=== PATIENT | female | born 1980 | race Hispanic/Latino ===

== ENCOUNTER 2023-01-20 15:48 | Emergency (ER) | payer OTHER, SELFPAY ==
--- NOTE | 2023-01-20 16:01 | PC.NURSE ---
in br to obtain ua spec.
[2023-01-20 16:06] VITALS: BP 145/79; PULSE 90; RESP 16; TEMP 37.4; O2SAT 99
--- NOTE | 2023-01-20 16:11 | ED.FEMALEGU ---
HPI - Female Genitourinary General Chief complaint: Urogenital-Female Stated complaint: UTI Source: patient Mode of arrival: ambulatory Limitations: no limitations History of Present Illness HPI Narrative: Patient is a 42-year-old female that presents with 3 days of urgency, frequency, burning with urination, low back pain, low abdominal pain. Denies any abdominal pain at this time, but reports low back pain is a 7/10. Did try [id number] antifungal vaginal cream with no relief of symptoms. Denies any fever, chills, nausea, vomiting, diarrhea. MD elicited complaint: dysuria Related Data Home Medications Medication Instructions Recorded Confirmed lisinopril 20 mg tablet mg 01/20/23 nifedipine 60 mg tablet,extended mg PO 01/20/23 release 24 hr Allergies Allergy/AdvReac Type Severity Reaction Status Date / Time Penicillins Allergy Severe Rash Verified 01/20/23 16:01 Review of Systems Review of Systems: All systems reviewed & are unremarkable except as noted in HPI and below Constitutional: Constitutional: Denies chills, Denies fever(s), Denies headache(s), Denies malaise and Denies weakness Eyes: Eyes: Denies change in vision, Denies eye discharge and Denies irritation ENT: Denies otalgia, Denies headache(s), Denies nasal congestion, Denies nasal discharge, Denies sinus pain and Denies sore throat Cardiovascular: Cardiovascular: Denies chest pain, Denies edema, Denies palpitations and Denies dyspnea Respiratory: Respiratory: Denies cough and Denies dyspnea Gastrointestinal: Gastrointestinal: Denies abdominal pain, Denies diarrhea, Denies nausea and Denies vomiting Genitourinary: Genitourinary: Denies hematuria, Reports dysuria, Denies flank pain, Reports urinary incontinence and Reports urinary urgency Musculoskeletal: Musculoskeletal: Reports back pain and Denies numbness Integumentary/Breasts: Skin/Breast: Denies pruritus and Denies rash Neurologic: Denies headache(s), Denies numbness and Denies weakness Psychiatric: Psychiatric: Reports no additional psychiatric complaints Endocrine: Endocrine: Denies palpitations PMFSH Comments At time of signature, agree with nursing past medical, surgical, social and family history. There is no relevant family history pertinent to the presenting complaint. Exam Const: General: cooperative, healthy appearing, comfortable, no acute distress and well nourished Nutritional Appearance: well nourished Orientation/consciousness: patient oriented x3 HENMT: Head: normocephalic and atraumatic Ears: external ears normal Face/Nose/Sinus: Normal external nose present, Normal nares present and normal facial exam Face and sinus: normal facial exam Eyes: General: appearance normal, both eyes and all related structures Pupils: Equal, round and reactive pupils present EOM: EOMs intact bilaterally Neck: Neck: normal visual inspection, full ROM and supple Chest: Chest palpation & inspection: normal inspection of the chest Resp: Effort & Inspection: normal respiratory effort and able to speak in complete sentences Cardio: Rate: regular rate Rhythm: regular rhythm GI: Inspection: normal to inspection GI Palp: No abdominal tenderness and Yes Soft to palpation : General: Yes no CVA tenderness OB/external & speculum: Deferred OB/external & speculum exam Manual OB Exam: Deferred manual OB exam Back/Spine/Pelvis: Back: no CVA tenderness Skin: General skin exam: normal color and no rashes or lesions noted Neuro: General: patient oriented x3 and moves all extremities Cranial nerves: Yes Equal, round and reactive pupils present Extrem: General: normal to inspection and full ROM Psych: Appearance: grossly normal and well kempt Course Course Emergency Course: Patient is aware of diagnosis, understands and agrees to treatment plan. Anticipatory guidance given. Patient agrees to follow-up as directed and is aware of reasons to seek care at the emergency departme
== END 2023-01-20 16:40 | disposition home or self-care (01) ==
PROVIDERS: Emergency Provider Nurse Practitioner Family; PCP Registered Nurse
DX: N39.0 Urinary tract infection, site not specified (principal); E78.00 Pure hypercholesterolemia, unspecified; I10 Essential (primary) hypertension
CPT/HCPCS: 81003; 87086; 87088; 87147; 99213; G0463

== ENCOUNTER 2023-08-22 21:17 | Emergency (ER) | payer OTHER, SELFPAY ==
--- NOTE | ~2023-08-22 | XR_ITS ---
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 RESULT: Lines, tubes, and devices: None. Lungs and pleura: Clear. Cardiomediastinal silhouette: Stable. Other: No acute osseous or upper abdominal finding. IMPRESSION: No acute cardiopulmonary process. Reviewed, dictated and finalized at location K. [facility] ENGINEER
[2023-08-22 21:20] VITALS: BP 129/84; PULSE 77; RESP 20; TEMP 36.7; O2SAT 99
[2023-08-22 21:38] VITALS: BP 124/77; PULSE 71; RESP 15; O2SAT 99
[2023-08-22 21:38] LABS: Basophils Percent Auto 0.3 % (0.2-1.2); Eosinophils Absolute Auto 0.1 K/mm3 (0-0.3); Eosinophils Percent Auto 1.5 % (0-4.4); Hematocrit 37.6 % (37.0-47.0); Hemoglobin 12.1 g/dL (12.0-15.0); Immature Granulocyte Absolute 0.03 K/mm3 (0.00-0.031); Immature Granulocyte Percent A 0.3 % (0-0.5); Lymphocytes Absolute Auto 3.14 K/mm3 (0.9-3.2); Mean Corpuscular HGB Conc 32.2 g/dl (32-36); Mean Corpuscular Hemoglobin 26.4 pg (26-34); Mean Corpuscular Volume 81.9 fl (80-100); Monocytes Absolute Auto 0.7 K/mm3 (0.1-0.6); Monocytes Percent Auto 7.5 % (2.6-8.5); Neutrophils Absolute Auto 5.5 K/mm3 (1.3-6.7); Neutrophils Percent Auto 57.4 % (45.5-73.1); Platelet Count Result 327 k/mm3 (150-375); Red Blood Count 4.59 M/mm3 (4.2-5.4); Red Cell Distribution Width 13.7 % (11.5-14.5); White Blood Count 9.5 K/mm3 (4.5-10.0)
[2023-08-22 21:49] LABS: Alanine Aminotransferase 17 U/L (6-35); Albumin Level 4.8 g/dL (3.5-5.1); Alkaline Phosphatase 50 U/L (38-126); Anion Gap 10 mmol/L (8-16); Aspartate Amino Transferase 22 U/L (14-36); Bilirubin,Total 0.5 mg/dL (0.2-1.3); Blood Urea Nitrogen 16 mg/dL (7-17); Calcium 9.5 mg/dL (8.4-10.2); Carbon Dioxide 26 mmol/L (22-30); Chloride 103 mmol/L (98-107); Estimated CRCL calculation 114 ml/min; Estimated Glomerular Filt Rate > 60; Glucose 93 mg/dL (65-110); Lipase 75 U/L (23-300); Potassium 3.9 mmol/L (3.4-5.0); Sodium 139 mmol/L (137-145)
[2023-08-22 21:50] LABS: Appearance Urine Clear (Clear); Bacteria Urine None Seen /hpf; Bilirubin Urine Negative (Negative); Blood Urine 1+ (Negative); Color Urine Yellow (Yellow); Glucose Urine UA Negative (Negative); Ketones Urine Negative (Negative); Leukocyte Esterase Ur Negative LEU/UL (Negative); Need Manual Microscopic Reviewed; Nitrate Urine Negative (Negative); Non Pathogenic Casts 0-2; Protein Urine Negative (Negative); Specific Grav Ur 1.002 (1.001-1.035); Squamous Epithelial Cell Urine None seen /hpf (Few); Urobilinogen Urine 0.2 mg/dL (<2.0); WBC Urine 0-5 /hpf; pH Urine 6.5 (5.0-9.0)
[2023-08-22 21:52] LABS: Add Urine Microscopic? YES
--- NOTE | 2023-08-22 21:52 | ED.GENADULT ---
HPI - General Adult General Chief complaint: Abdominal Pain Stated complaint: abd pain Time Seen by Provider: 08/22/23 21:26 History of Present Illness HPI narrative: patient presents the emergency department from home with family. She has a burning chest wall pain in the left upper chest that radiates into her back. She has had similar pain in the past roughly a year ago on the right side. Food makes it worse. No other alleviating or worsening factors. Denies cardiac history. Patient is primarily [place]-speaking alert communicates well through family. She also denies any additional review of systems Related Data Home Medications Medication Instructions Recorded Confirmed lisinopril 20 mg tablet mg 01/20/23 nifedipine 60 mg tablet,extended mg PO 01/20/23 release 24 hr Allergies Allergy/AdvReac Type Severity Reaction Status Date / Time Penicillins Allergy Severe Rash Verified 01/20/23 16:01 Review of Systems Review of Systems: no additional review of systems positive exceptfor was documented in the HPI Exam Narrative: GENERAL: Well-appearing, well-nourished, and in no acute distress. HEAD: Normocephalic, atraumatic. EYES: PERRLA and EOMI. ENT: Nares clear, no rhinorrhea or epistaxis. Mucous membranes moist. NECK: Supple. CHEST: Clear to auscultation. No respiratory distress. HEART: Regular rate and rhythm. ABDOMEN: Soft, nontender, nondistended. EXTREMITIES: Normal range of motion. No edema. SKIN: Warm, dry, no rash. NEURO: No focal deficits. Alert and oriented x3. PSYCH: Normal mood and affect. Course Course Emergency Course: Telemetry ordered due to chest pain to evaluate for dysrhythmias. Evaluated by myself. Rhythm NS Rate 75 differential diagnosis include but not limited to chest wall pain, GERD, CAD, pancreatitis, pneumonia Vital Signs Vital signs: Vital Signs Temperature 36.7 C 08/22/23 21:20 Pulse Rate 77 08/22/23 21:20 Respiratory Rate 20 08/22/23 21:20 Blood Pressure 129/84 08/22/23 21:20 Pulse Oximetry 99 08/22/23 21:20 Oxygen Delivery Room Air 08/22/23 21:20 Temperature 36.7 C 08/22/23 21:20 Pulse Rate 63 08/22/23 23:33 Respiratory Rate 15 08/22/23 23:33 Blood Pressure 110/66 08/22/23 23:33 Pulse Oximetry 98 08/22/23 23:33 Oxygen Delivery Room Air 08/22/23 21:20 Medical Decision Making Vital Signs Vital Signs: Vital Signs Temperature 36.7 C 08/22/23 21:20 Pulse Rate 77 08/22/23 21:20 Respiratory Rate 20 08/22/23 21:20 Blood Pressure 129/84 08/22/23 21:20 Pulse Oximetry 99 08/22/23 21:20 Oxygen Delivery Room Air 08/22/23 21:20 Temperature 36.7 C 08/22/23 21:20 Pulse Rate 63 08/22/23 23:33 Respiratory Rate 15 08/22/23 23:33 Blood Pressure 110/66 08/22/23 23:33 Pulse Oximetry 98 08/22/23 23:33 Oxygen Delivery Room Air 08/22/23 21:20 Lab Data 08/22/23 21:30 08/22/23 21:30 Labs: Lab Results 08/22/23 08/22/23 08/22/23 Range/Units 21:29 21:30 23:07 WBC 9.5 (4.5-10.0) K/mm3 RBC 4.59 (4.2-5.4) M/mm3 Hgb 12.1 (12.0-15.0) g/dL Hct 37.6 (37.0-47.0) % MCV 81.9 (80-100) fl MCH 26.4 (26-34) pg MCHC 32.2 (32-36) g/dl RDW 13.7 (11.5-14.5) % Plt Count 327 (150-375) k/mm3 MPV 10.0 (7.4-10.4) fl Immature Gran % (Auto) 0.3 (0-0.5) % Neut % (Auto) 57.4 (45.5-73.1) % Lymph % (Auto) 33.0 (18.3-44.2) % [place] % (Auto) 7.5 (2.6-8.5) % Eos % (Auto) 1.5 (0-4.4) % Baso % (Auto) 0.3 (0.2-1.2) % Lymph # (Auto) 3.14 (0.9-3.2) K/mm3 [place] # (Auto) 0.7 H (0.1-0.6) K/mm3 Eos # (Auto) 0.1 (0-0.3) K/mm3 Baso # (Auto) 0.0 (0.0-0.1) K/mm3 Abs Immat Gran (auto) 0.03 (0.00-0.031) K/mm3 Absolute Neuts (auto) 5.5 (1.3-6.7) K/mm3 Absolute Nucleated RBC 0.0 (0.0-0.012) K/mm3 Nucleated RBC % 0.0 (0.0-0.2) % Sodium 139 (137-145) mmol/L P
[2023-08-22] MEDS: KETOROLAC 30 MG/ML VIAL (*BKC) IV PUSH (21:55)
[2023-08-22 23:10] LABS: Troponin I < 0.012 ng/mL (0.000-0.034)
[2023-08-22 23:33] VITALS: BP 110/66; PULSE 63; RESP 15; O2SAT 98
[2023-08-22 23:38] LABS: Troponin I < 0.012 ng/mL (0.000-0.034)
[2023-08-23 00:55] VITALS: BP 114/72; PULSE 69; RESP 15; O2SAT 100
== END 2023-08-23 00:59 | disposition home or self-care (01) ==
PROVIDERS: Emergency Provider Emergency Medicine; PCP Registered Nurse
DX: R07.89 Other chest pain (principal)
CPT/HCPCS: 36415; 71046; 80053; 81001; 81025; 83690; 84484; 85025; 96374; 99284; J1885